=== PATIENT | female | born 1960 | race Caucasian/White ===

== ENCOUNTER 2016-11-07 15:06 | Emergency (ER) | payer BC | END 2016-11-07 17:44 | disposition home or self-care (01) | LOC: D.ER 15:06 | DX: S90.31XA Contusion of right foot, initial encounter (principal); W31.89XA Contact with other specified machinery, initial encounter; Y93.89 Activity, other specified; Y92.89 Other specified places as the place of occurrence of the external cause; J45.909 Unspecified asthma, uncomplicated ==

== ENCOUNTER 2019-03-13 23:33 | Emergency (ER) | payer OTHER ==
[2019-03-13 23:40] VITALS: BMI 40.4
[2019-03-13] MEDS ORDERED: FLOVENT HFA 22012 GM (23:43)
[2019-03-13] MEDS ORDERED: SINGULAIR10 MG PO (23:43)
[2019-03-13] MEDS ORDERED: LISINOPRIL-HCT1 EAC4 PO (23:43)
[2019-03-13] MEDS ORDERED: VOLTAREN75 MG PO (23:43)
[2019-03-14] MEDS ORDERED: ACETAMINOPHEN500 M1 PO (00:18)
[2019-03-14] MEDS ORDERED: IBUPROFEN800 MG PO (00:18)
[2019-03-14] MEDS ORDERED: CYCLOBENZAPRINE10 MG PO (00:18)
[2019-03-14 00:33] VITALS: BP 141/79
== END 2019-03-14 00:30 | disposition home or self-care (01) ==
LOC: D.ER 23:33
DX: S80.01XA Contusion of right knee, initial encounter (principal); W18.2XXA Fall in (into) shower or empty bathtub, initial encounter; Y93.E1 Activity, personal bathing and showering; Y92.012 Bathroom of single-family (private) house as the place of occurrence of the external cause; M25.561 Pain in right knee